=== PATIENT | male | born 1955 | race African-American/Black ===

== ENCOUNTER 2017-09-24 00:35 | Emergency (ER) | payer MEDICARE, OTHER ==
[~2017-09-24] VITALS: Ht 177.8 cm; Wt 71.7 kg
[2017-09-24 02:05] LABS: BASOPHILS % (AUTO) 0.8 % (0.0-2.0); EOSINOPHILS % (AUTO) 1.5 % (0.0-3.0); HEMATOCRIT 37.6 % (42.0-52.0); HEMOGLOBIN 13.4 G/DL (14.2-18.0); LYMPHOCYTES % (AUTO) 20.4 % (20.0-45.0); MEAN CORPUSCULAR VOLUME 90 FL (80-99); MONOCYTES % (AUTO) 11.8 % (1.0-10.0); NEUTROPHILS % (AUTO) 65.5 % (45.0-75.0); PLATELET COUNT 246 K/UL (150-450); RED BLOOD COUNT 4.19 M/UL (4.70-6.10); RED CELL DISTRIBUTION WIDTH 11.8 % (11.6-14.8)
[2017-09-24 02:14] LABS: ANION GAP 7 mmol/L (5-15); BLOOD UREA NITROGEN 13 mg/dL (7-18); CALCIUM 8.3 MG/DL (8.5-10.1); CARBON DIOXIDE 28 MMOL/L (21-32); CHLORIDE 104 MMOL/L (98-107); CREATININE 1.1 MG/DL (0.55-1.30); POTASSIUM 3.7 MMOL/L (3.5-5.1); SODIUM 139 MMOL/L (136-145)
[2017-09-24 02:19] LABS: ALANINE AMINOTRANSFERASE 20 U/L (12-78); ALBUMIN 3.4 G/DL (3.4-5.0); ALKALINE PHOSPHATASE 102 U/L (46-116); ASPARTATE AMINO TRANSFERASE 16 U/L (15-37); BILIRUBIN,TOTAL 0.6 MG/DL (0.2-1.0)
[2017-09-24 02:21] LABS: INR 1.1 (0.9-1.1)
[2017-09-24] MEDS ORDERED: Acetaminophen 500mg (ES) tab ORAL ONE (02:30)
[2017-09-24 03:12] VITALS: BP 111/75
--- NOTE | 2017-09-24 03:36 | Emergency Room Report ---
History of Present Illness General Chief Complaint: Multiple Trauma/Fall Source: Patient, EMS Present Illness HPI Patient is a 61-year-old male who presented after a recent fall. Patient reports having increased pain to his left knee. Patient had reportedly hit his head when he last fell. He reports having recently been seen at another hospital. Patient was brought in by EMS. Patient was noted to be deaf Allergies: Coded Allergies: No Known Allergies (Unverified , 09/24/17) Patient History Reviewed Nursing Documentation: PMH: Agreed; PSxH: Agreed Review of Systems All Other Systems: negative except mentioned in HPI Physical Exam Vital Signs Date Time Temp Pulse Resp B/P (MAP) Pulse Ox O2 Delivery O2 Flow Rate FiO2 09/24/17 00:38 98.3 88 18 97/63 98 Room Air 98.2 Sp02 EP Interpretation: reviewed, normal General Appearance: normal inspection, alert, no apparent distress, GCS 15 Head: normocephalic, atraumatic Eyes: normal eye exam, PERRL, EOMI, lids + conjunctiva normal, no hyphema, no racoon eyes ENT: normal ENT inspection, TMs + canals normal, oropharynx normal, no nevarez signs Neck: trach midline, no bony tend, full range of motion without pain Respiratory: effort normal, no retractions, clear to auscultation, chest symmetrical, palpation of chest normal, speaking in full sentences Cardiovascular: regular rate, rhythm, no JVD Cardiovascular #2: 2+ radial (R), 2+ radial (L), 2+ dorsalis pedis (R), 2+ dorsalis pedis (L) Gastrointestinal: normal inspection, non-tender, non-distended, no rebound/ guarding, normal bowel sounds Genitourinary: normal inspection Musculoskeletal: normal ROM, non-tender, back normal Skin: no rash, no lacerations, normal palpation Lymphatic: normal inspection Neurologic: normal inspection, CN II-XII intact, oriented x3, sensory intact, motor strength/tone normal, normal speech Psychiatric: normal inspection, memory normal, mood normal, no suicidal/ homicidal ideation Medical Decision Making Diagnostic Impression: Primary Impression: Fall Additional Impressions: Cervical spinal stenosis Contusion, knee ER Course Patient presented for fall. Differential diagnosis included was not limited to neck fracture, CVA, close head injury, syncopal episode, basilar ischemia. Because of complexity of patient's case laboratory testing and imaging studies were ordered. CT the head read by radiology showed no evidence of acute intracranial process there was in full additional changes small vessel disease and chronic left sphenoid sinusitis. The CT of cervical spine showed no cervical fractures and mild cervical spondylosis without evident fracture in varying degrees of central canal and foraminal stenosis.The patient was given pain medications. Labs Test 09/24/17 01:45 White Blood Count 9.0 K/UL (4.8-10.8) Red Blood Count 4.19 M/UL (4.70-6.10) Hemoglobin 13.4 G/DL (14.2-18.0) Hematocrit 37.6 % (42.0-52.0) Mean Corpuscular Volume 90 FL (80-99) Mean Corpuscular Hemoglobin 32.0 PG (27.0-31.0) Mean Corpuscular Hemoglobin Concent 35.7 G/DL (32.0-36.0) Red Cell Distribution Width 11.8 % (11.6-14.8) Platelet Count 246 K/UL (150-450) Mean Platelet Volume 6.8 FL (6.5-10.1) Neutrophils (%) (Auto) 65.5 % (45.0-75.0) Lymphocytes (%) (Auto) 20.4 % (20.0-45.0) Monocytes (%) (Auto) 11.8 % (1.0-10.0) Eosinophils (%) (Auto) 1.5 % (0.0-3.0) Basophils (%) (Auto) 0.8 % (0.0-2.0) Prothrombin Time 11.1 SEC (9.30-11.50) Prothromb Time International Ratio 1.1 (0.9-1.1) Activated Partial Thromboplast Time 29 SEC (23-33) Sodium Level 139 MMOL/L (136-145) Potassium Level 3.7 MMOL/L (3.5-5.1) Chloride Level 104 MMOL/L (98-107) Carbon Dioxide Level 28 MMOL/L (21-32) Anion Gap 7 mmol/L (5-15) Blood Urea Nitrogen 13 mg/dL (7-18) Creatinine 1.1 MG/DL (0.55-1.30) Estimat Glomerular Filtration Rate > 60 mL/min (>60) Glucose Level 94 MG/DL (74-106) Calcium Level 8.3 MG/DL (8.5-10.1) Total Bilirubin 0.6 MG/DL (0.2-1.0) Aspartate Amino Transf (AST/SGOT) 16 U/L (15-37) Alanine Aminotransferase (ALT/SGPT) 20 U/L (12-78) Alkaline Phosphatase 102 U/L (46-116) Troponin I 0.000 ng/mL (0.000-0.056) Total Protein 6.8 G/DL (6.4-8.2) Albumin 3.4 G/DL (3.4-5.0) Globulin 3.4 g/dL Albumin/Globulin Ratio 1.0 (1.0-2.7) Last Vital Signs Date Time Temp Pulse Resp B/P (MAP) Pulse Ox O2 Delivery O2 Flow Rate FiO2 09/24/17 03:12 97.7 90 16 111/75 94 Room Air 97.7 Status: improved Disposition: HOME, SELF-CARE Condition: Stable Referrals: [facility]ERR[facility] (PCP) Jhon Bowden MD Sep 24, 2017 03:36
--- NOTE | 2017-09-24 04:31 | Diagnostic Imaging Report ---
EXAM: CT Head Without Intravenous Contrast. CLINICAL HISTORY: AMS TECHNIQUE: Axial computed tomography images of the head/brain without intravenous contrast. CTDI is 70.5 mGy and DLP is 1597 mGy-cm. One or more of the following dose reduction techniques were used: automated exposure control, adjustment of the mA and/or kV according to patient size, use of iterative reconstruction technique. COMPARISON: No relevant prior studies available. FINDINGS: Brain: No evidence of acute intracranial hemorrhage. No midline shift. No mass effect. Mild chronic parenchymal volume loss and minimal small vessel ischemic disease.. Ventricles: Ventricular volumes are within normal limits. Bones: No acute fracture. Sinuses: Complete opacification of the left sphenoid sinus with associated sinus wall thickening and sclerosis. Findings are most consistent with chronic sinusitis. Mastoid air cells: Unremarkable as visualized. No mastoid effusion. IMPRESSION: No acute intracranial abnormality. Chronic left sphenoid sinusitis.
--- NOTE | 2017-09-24 04:34 | Diagnostic Imaging Report ---
EXAM: CT Cervical Spine Without Intravenous Contrast. CLINICAL HISTORY: AMS TECHNIQUE: Axial computed tomography images of the cervical spine without intravenous contrast. CTDI is 15.4 mGy and DLP is 347 mGy-cm. One or more of the following dose reduction techniques were used: automated exposure control, adjustment of the mA and/or kV according to patient size, use of iterative reconstruction technique. COMPARISON: No relevant prior studies available. FINDINGS: Vertebrae: No acute fracture. Discs/spinal canal/neural foramina: No acute findings. No spinal canal stenosis. Mild multilevel degenerative changes including facet arthropathy and disc disease. Soft tissues: Unremarkable. Lung apices: Unremarkable as visualized. IMPRESSION: No acute fracture or malalignment of the cervical spine.
[2017-09-24] MEDS ORDERED: LIDOCAINE700 M1 TP (04:52)
[2017-09-24] MEDS ORDERED: ACETAMINOPHEN325 M1 ORAL (04:52)
[2017-09-24 04:59] LABS: APPEARANCE,URINE CLEAR; BILIRUBIN, URINE NEGATIVE (NEGATIVE); COLOR,URINE PALE YELLOW; GLUCOSE, URINE (UA) NEGATIVE (NEGATIVE); KETONES,URINE NEGATIVE (NEGATIVE); LEUKOCYTE ESTERASE ,URINE NEGATIVE (NEGATIVE); NITRITE,URINE NEGATIVE (NEGATIVE); PH,URINE 5 (4.5-8.0); PROTEIN,URINE NEGATIVE (NEGATIVE); UROBILINOGEN,URINE NORMAL MG/DL (0.0-1.0)
--- NOTE | 2017-09-24 05:00 | Diagnostic Imaging Report ---
EXAM: XR Right Knee, 3 views. CLINICAL HISTORY: PAIN TECHNIQUE: Three views of the right knee. COMPARISON: No relevant prior studies available. FINDINGS: Bones: No acute fracture. Joints: No dislocation. No significant joint effusion. Soft tissues: Mild prepatellar soft tissue swelling. IMPRESSION: No acute osseous abnormality. Mild prepatellar soft tissue swelling suggestive of subcutaneous hematoma.
[2017-09-24 05:19] VITALS: BP 123/81
[2017-09-24 06:11] VITALS: BP 123/81
== END 2017-09-24 06:10 | disposition home or self-care (01) ==
LOC: EDBD 00:35 → EMR 00:55
DX: S80.02XA Contusion of left knee, initial encounter (principal); W19.XXXA Unspecified fall, initial encounter; Y92.9 Unspecified place or not applicable; M48.02 Spinal stenosis, cervical region; J32.3 Chronic sphenoidal sinusitis
CPT/HCPCS: 36415; 70450; 72125; 80053; 81001; 82962; 84484; 85025; 85610; 85730; 99284